=== PATIENT | female | born 1965 | race Caucasian/White ===

== ENCOUNTER → 2020-01-06 | Outpatient (CLI) | payer OTHER ==
--- NOTE | 2020-01-14 07:09 | Polysomnography ---
DATE OF STUDY: 01/06/2020 REFERRING PHYSICIAN: Celestino Alvarado MD DATE OF INTERPRETATION: 01/13/2020. INTERPRETING PHYSICIAN: Celestino Alvarado MD PROCEDURE: Interpretation of home sleep test (HST). IMPRESSIONS: Severe obstructive sleep apnea with associated arterial oxygen desaturations with an AHI of 38.9. RECOMMENDATIONS: 1. Initiate titration for continuous positive airway pressure therapy (CPAP) or trial of AutoPAP. 2. ENT evaluation to consider surgical options to correct sleep-disordered breathing. 3. Avoid consumption of alcohol or sedatives before bedtime. 4. Avoid caffeine and exercise within 3-4 hours prior to bedtime. 5. Weight reduction to ideal body weight. 6. Advise the patient that excessive daytime sleepiness could pose a danger to the patient and others while driving or operating heavy machinery, and to use caution until symptoms are treated and improved. 7. Patient to follow up with physician to discuss results of study. Celestino Alvarado MD JKY/MODL /[id number] MTDD
== END ==
LOC: SLEEP 12:47
PROVIDERS: ATTEND Otolaryngology
DX: G47.33 Obstructive sleep apnea (adult) (pediatric) (principal)
CPT/HCPCS: 95806